=== PATIENT | male | born 1965 | race Caucasian/White ===

== ENCOUNTER 2017-07-20 11:20 | Emergency (ER) | payer OTHER ==
[2017-07-20 11:30] VITALS: BP 141/83; PULSE 82; RESP 18; TEMP 98.4; O2SAT 94
--- NOTE | 2017-07-20 11:53 | EDPHY ---
H & P Time Seen by Provider: 07/20/17 11:25 HPI/ROS: CHIEF COMPLAINT: Right ankle pain HISTORY OF PRESENT ILLNESS: 52-year-old male presents with right ankle pain. Just prior to arrival, he was walking when he stepped onto the edge of the pavement and twisted his right ankle. He fell to the ground and struck his chin on a cardboard box. Immediate onset of moderate right ankle pain and swelling. Mild chin pain, no headache or neck pain. ROS: No numbness, weakness, bleeding, syncopal episode, other injury. Past Medical/Surgical History: Hypertension Social History: Smoking Status: Never smoked Physical Exam: Alert, pleasant Extremities: Right ankle with swelling over the lateral malleolus and slight swelling over the medial malleolus. There is no posterior lateral malleolus tenderness, midfoot tenderness, or proximal fifth metatarsal tenderness. The ankle is stable and the Achilles tendon is intact. Vascular: Pedal pulses 2+ Neurologic: Ankle and foot with normal sensation and strength Skin: Intact Constitutional: Initial Vital Signs Temperature (C) 36.9 C 07/20/17 11:26 Heart Rate 82 07/20/17 11:26 Respiratory Rate 18 07/20/17 11:26 Blood Pressure 141/83 H 07/20/17 11:26 O2 Sat (%) 94 07/20/17 11:26 O2 Delivery Mode Room Air Allergies/Adverse Reactions: codeine [Codeine] Adverse Reaction (Mild, Verified 07/20/17 11:25) Abdominal Cramping Home Medications: Medication Instructions Recorded LISINOPRIL 02/15/09 PRAVASTATIN SODIUM 02/15/09 Medical Decision Making - Diagnostics Imaging Results: X-ray independently reviewed by me reveals no acute fracture. ED Course/Re-evaluation: This patient presents with an ankle sprain. Ankle stirrup splint given. Patient already has crutches. Departure - Departure Disposition: Home, Routine, Self-Care Clinical Impression: Right ankle sprain Qualifiers: Encounter type: initial encounter Involved ligament of ankle: tibiofibular ligament Qualified Code(s): S93.431A - Sprain of tibiofibular ligament of right ankle, initial encounter Condition: Good Instructions: Ankle Sprain (DC), Crutch Instructions (ED), Ankle Stirrup Splint (ED) Additional Instructions: Ibuprofen 600 mg 3 times daily while the pain persists. Keep your leg elevated when possible. Apply ice for 20 min every 1-2 hr. Referrals: Nan Nolan, [facility] [Primary Care Provider] - 5-7 days, if not improved
== END 2017-07-20 12:07 | disposition home or self-care (01) ==
LOC: CED 11:20
DX: S93.431A Sprain of tibiofibular ligament of right ankle, initial encounter (principal); I10 Essential (primary) hypertension; W18.09XA Striking against other object with subsequent fall, initial encounter; Y99.8 Other external cause status; Y93.01 Activity, walking, marching and hiking
CPT/HCPCS: 73610-PO; L4350